=== PATIENT | female | born 1965 | race Caucasian/White ===

== ENCOUNTER 2017-04-04 22:54 | Emergency (ER) | payer OTHER ==
[~2017-04-04 22:54] MED LIST: ALBUTEROL MININEB NEB; AZMACORT20 GM INH; FLEXERIL10 MG PO; HUMIBID CS TABL1 TAB PO; LORTAB 5/500 TA1 TA1 PO; ZITHROMAX PO
== END 2017-04-04 23:55 | disposition home or self-care (01) ==
LOC: SED 22:54
DX: J45.901 Unspecified asthma with (acute) exacerbation (principal); J20.9 Acute bronchitis, unspecified
CPT/HCPCS: 94640; 99283